=== PATIENT | female | born 1995 | race Caucasian/White ===

== ENCOUNTER 2018-06-22 09:43 | Emergency (ER) | payer MEDICAID, OTHER ==
[2018-06-22] MEDS ORDERED: DEXAMETHASONE 10 MG/ML VIAL PO STA (10:28)
[2018-06-22] MEDS ORDERED: CHERRY SYRUP 10 ML UDC PO ONE (10:31)
--- NOTE | 2018-06-22 10:31 | ED Physician Documentation ---
PD HPI HEENT - Stated complaint Stated Complaint: FEVER/THROAT PX - Chief complaint Chief Complaint: Heent - History obtained from History obtained from: Patient, Family - History of Present Illness Timing - onset: How many days ago (3) Timing - duration: Days (3) Timing - details: Gradual onset, Still present Location: Throat Improves: Medication Worsens: Swalllowing Associated symptoms: Congestion, Rhinorrhea, Swollen nodes, Cough Similar symptoms before: Diagnosis (sore throat) Recently seen: Not recently seen - Additional information Additional information: 23-year-old female previously well has developed a sore throat cough congestion and left ear pain. Review of Systems Constitutional: denies: Fever Eyes: denies: Decreased vision Ears: reports: Ear pain Nose: reports: Rhinorrhea / runny nose, Congestion Throat: reports: Sore throat Cardiac: denies: Chest pain / pressure, Palpitations Respiratory: reports: Cough. denies: Dyspnea GI: denies: Vomiting PD PAST MEDICAL HISTORY - Past Medical History Past Medical History: No - Past Surgical History Past Surgical History: Yes Ortho: Arthroscopic surgery - Present Medications Home Medications: Ambulatory Orders Medication Instructions Recorded Confirmed Azithromycin [Zithromax] 250 mg PO DAILY #6 tablet 06/22/18 - Allergies Allergies/Adverse Reactions: Allergies Allergy/AdvReac Type Severity Reaction Status Date / Time No Known Drug Allergies Allergy Verified 07/28/15 09:57 - Social History Does the pt smoke?: Yes Smoking Status: Current every day smoker Does the pt drink ETOH?: Yes Does the pt have substance abuse?: Yes - Immunizations Immunizations are current?: Yes PD ED PE NORMAL - Vitals Vital signs reviewed: Yes (normal ) - General General: Alert and oriented X 3, No acute distress, Well developed/nourished - HEENT HEENT: Atraumatic, PERRL, EOMI, Other (The left TM is clear the right is with with mild inflamation and flattending of the landmarks. The pharynx is with general inflamation and edema tonsils are not enlarged) - Neck Neck: Supple, no meningeal sign, No bony TTP, Other (shoddy adenopathy bilaterally and tender submandibular adenopathy on the right ) - Cardiac Cardiac: RRR, No murmur - Respiratory Respiratory: No respiratory distress, Clear bilaterally - Abdomen Abdomen: Soft, Non tender - Back Back: No CVA TTP, No spinal TTP - Derm Derm: Normal color, Warm and dry, No rash - Extremities Extremities: No deformity, No edema - Neuro Neuro: Alert and oriented X 3, No motor deficit, No sensory deficit, Normal speech Eye Opening: Spontaneous Motor: Obeys Commands Verbal: Oriented GCS Score: 15 - Psych Psych: Normal mood, Normal affect Results - Vitals Vitals: Vital Signs - 24 hr 06/22/18 09:46 Temperature 36.6 C Heart Rate 75 Respiratory 14 Rate Blood Pressure 125/71 O2 Saturation 100 Oxygen O2 Source Room air - Labs Labs: Laboratory Tests 06/22/18 10:12 Group A Strep Rapid Negative PD MEDICAL DECISION MAKING - ED course Complexity details: reviewed results, re-evaluated patient, considered differential, d/w patient, d/w family ED course: 23-year-old female with a sore throat has right otitis on examination and swelling and edema of the pharynx. She is administered dexamethasone 10 mg orally and a rapid strep is obtained. - Sepsis Event Vital Signs: Vital Signs - 24 hr 06/22/18 09:46 Temperature 36.6 C Heart Rate 75 Respiratory 14 Rate Blood Pressure 125/71 O2 Saturation 100 Oxygen O2 Source Room air Departure - Departure Disposition: 01 Home, Self Care Clinical Impression: Acute viral pharyngitis Otitis media Qualifiers: Otitis media type: suppurative Chronicity: acute Laterality: right Recurrence: not specified as recurrent Spontaneous tympanic membrane rupture: without spontaneous rupture Qualified Code(s): H66.001 - Acute suppurative otitis media without spontaneous rupture of ear drum, right ear Condition: Stable Instructions: ED Otitis Media Acute Adult, ED Pharyngitis Viral Follow-Up: [facility] [Provider Group] Prescriptions: Azithromycin [Zithromax] 250 mg PO DAILY #6 tablet Forms: Activity restrictions
[2018-06-22 11:04] VITALS: BP 120/70
== END 2018-06-22 10:55 | disposition home or self-care (01) ==
LOC: ED 09:43
DX: J02.8 Acute pharyngitis due to other specified organisms (principal); B97.89 Other viral agents as the cause of diseases classified elsewhere; H66.001 Acute suppurative otitis media without spontaneous rupture of ear drum, right ear
CPT/HCPCS: 87070; 87430; 99283; A9270

== ENCOUNTER 2018-12-04 15:52 | Emergency (ER) | payer OTHER ==
[2018-12-04 15:59] VITALS: BP 140/90
[2018-12-04] MEDS ORDERED: CYCLOBENZAPRINE 10 MG TABLET PO STA (16:05)
[2018-12-04] MEDS ORDERED: KETOROLAC 60 MG/2 ML VIAL IM STA (16:05)
--- NOTE | 2018-12-04 16:08 | ED Physician Documentation ---
PD HPI BACK PAIN - Stated complaint Stated Complaint: BACK PAIN - Chief complaint Chief Complaint: Back Pain - History obtained from History obtained from: Patient, Family - History of Present Illness Timing - onset: How many days ago (2) Timing - duration: Days (2) Timing - details: Gradual onset Pain level max: 8 Pain level now: 8 Location: Lower, Right, Left Quality: Pain, Spasm, Similar to prior episodes Associated symptoms: No: Fever, Weakness, Numbness, Incontinent of urine, Unable to urinate, Hematuria, Incontinent of stool Improves with: Rest Worsened by: Movement, Lifting Contributing factors: Lifting, Twisting, Other (spotting gymnastics practice). No: Anticoagulated, Cancer, IVDA Recently seen: Not recently seen Review of Systems Constitutional: denies: Fever GI: denies: Vomiting : denies: Dysuria, Frequency, Hesitancy, Incontinent Musculoskeletal: denies: Neck pain Neurologic: denies: Focal weakness, Numbness PD PAST MEDICAL HISTORY - Past Medical History Past Medical History: No - Past Surgical History Past Surgical History: Yes Ortho: Arthroscopic surgery - Present Medications Home Medications: Ambulatory Orders Medication Instructions Recorded Confirmed Cyclobenzaprine [Flexeril] 10 mg PO TID PRN #20 tablet 12/04/18 Meloxicam [Mobic] 15 mg PO DAILY PRN #20 tablet 12/04/18 - Allergies Allergies/Adverse Reactions: Allergies Allergy/AdvReac Type Severity Reaction Status Date / Time No Known Drug Allergies Allergy Verified 12/04/18 15:57 - Living Situation Living Situation: reports: With family Living Arrangement: reports: At home - Social History Does the pt smoke?: Yes Smoking Status: Current every day smoker Does the pt drink ETOH?: Yes Does the pt have substance abuse?: Yes - Immunizations Immunizations are current?: Yes PD ED PE NORMAL - Vitals Vital signs reviewed: Yes - General General: Alert and oriented X 3, No acute distress - HEENT HEENT: Moist mucous membranes - Neck Neck: Supple, no meningeal sign - Cardiac Cardiac: RRR - Respiratory Respiratory: No respiratory distress, Clear bilaterally - Abdomen Abdomen: Soft, Non tender, Non distended - Back Back: No spinal TTP (No midline tenderness to palpation or percussion. There is paraspinal spasm.) - Derm Derm: Warm and dry - Extremities Extremities: Normal ROM s pain - Neuro Neuro: Alert and oriented X 3, electroless plater 2-12 intact, No motor deficit, No sensory deficit, Other (Normal bilateral lower extremity patellar and ankle jerk reflexes. Normal great toe extension bilaterally. no saddle anesthesia) Results - Vitals Vitals: Vital Signs - 24 hr 12/04/18 15:56 Temperature 36.5 C Heart Rate 76 Respiratory 18 Rate Blood Pressure 140/90 H O2 Saturation 100 Oxygen O2 Source Room air PD MEDICAL DECISION MAKING - ED course Complexity details: reviewed results, re-evaluated patient, considered differential (No cauda equina, no spinal epidural abscess, no fracture, no aortic dissection or evidence of aneursym rupture), d/w patient, d/w family ED course: Patient with low lumbar paraspinal spasm. No sciatica. No evidence of cauda equina or epidural abscess. No evidence of fracture. Will place on pain medication and muscle relaxants and follow-up with her PCP. Patient counseled regarding signs and symptoms for which I believe and urgent re-evaluation would be necessary. Patient with good understanding of and agreement to plan and is comfortable going home at this time This document was made in part using voice recognition software. While efforts are made to proofread this document, sound alike and grammatical errors may occur. Departure - Departure Disposition: 01 Home, Self Care Clinical Impression: Back spasm Condition: Good Instructions: ED Low Back Pain Injury Follow-Up: your,doctor in 1 week [Other] Prescriptions: Cyclobenzaprine [Flexeril] 10 mg PO TID PRN #20 tablet PRN Reason: Spasms Meloxicam [Mobic] 15 mg PO DAILY PRN #20 tablet PRN Reason: pain Comments: Use the medications as prescribed. Return if you worsen. This will likely improve over the next 3-4 days. Continue to gently stretch her back. Do not drive or operate heavy machinery while taking the Flexeril. Forms: Activity restrictions Discharge Date/Time: 12/04/18 16:27
== END 2018-12-04 16:27 | disposition home or self-care (01) ==
LOC: ED 15:52
DX: M62.830 Muscle spasm of back (principal); F17.200 Nicotine dependence, unspecified, uncomplicated
CPT/HCPCS: 96372; 99283; A9270